=== PATIENT | female | born 1965 | race Caucasian/White ===

== ENCOUNTER 2018-10-10 23:23 | Emergency (ER) | payer SELFPAY ==
[2018-10-10 23:24] VITALS: BP 124/81
--- NOTE | 2018-10-10 23:29 | ER Report ---
History and Physical Time Seen By MD: 23:25 Hx. of Stated Complaint: S[facility]IOR [facility]IVING CLEARANCE HPI/ROS CHIEF COMPLAINT: Alcohol intoxication, longterm clearance HISTORY OF PRESENT ILLNESS: This is a 53-year-old female. She has been drinking heavily tonight. Found passed out in the hotel in a chair, and police brought h er here for longterm clearance. She denies any pain. Denies any current medical problems. She does have a long history of alcoholism. REVIEW OF SYSTEMS: Respiratory: No shortness of breath. Cardiovascular: No chest pain. Gastrointestinal: No vomiting, no abdominal pain. Musculoskeletal: No musculoskeletal pain or injuries. Allergies: Coded Allergies: No Known Drug Allergies (Unverified , 10/10/18) Home Meds No Active Prescriptions or Reported Meds Reviewed Nurses Notes: Yes Constitutional Vital Sign - Last 24 Hours 10/10/18 23:24 Temp 97.8 Pulse 87 Resp 16 B/P (MAP) 124/81 Pulse Ox 89 O2 Delivery Room Air Physical Exam General Appearance: The patient is alert, has no immediate need for airway protection. She is intoxicated. Eyes: Pupils are equal, round, reactive to light. Extraocular movements intact. She does have some scleral injection. ENT: Normal oral mucosa. Moist mucous membranes. Neck: Neck is supple and non tender. Respiratory: Chest is non tender, lungs are clear to auscultation. Cardiac: regular rate and rhythm, normal peripheral perfusion. Gastrointestinal: Abdomen is soft and non tender, bowel sounds normal. Musculoskeletal: Extremities have full range of motion. Non tender with palpation in the neck and back. Skin: No rashes or lesions. Neuro: Intoxicated, alert, in no acute distress and no focal deficits other than the intoxication. DIFFERENTIAL DIAGNOSIS: After history and physical exam differential diagnosis was considered for alcohol intoxication Medical Decision Making ED Course/Re-evaluation ED Course No current problems other than the noted intoxication. Stable to be discharged with police to longterm. Decision to Disposition Date: Oct 10, 2018 Decision to Disposition Time: 23:32 Depart Departure Latest Vital Signs Vital Signs Date Time Temp Pulse Resp B/P (MAP) Pulse Ox O2 Delivery O2 Flow Rate FiO2 10/10/18 23:24 97.8 87 16 124/81 89 Room Air Impression: Primary Impression: Alcohol intoxication Condition: Improved Disposition: [facility] TO [facility]RECTION[facility] F New Scripts No Active Prescriptions or Reported Meds Patient Instructions: Alcohol Intoxication (ED) Problem Qualifiers Primary Impression: Alcohol intoxication Complication of substance-induced condition: uncomplicated Qualified Codes: F10.920 - Alcohol use, unspecified with intoxication, uncomplicated MARK AGUILAR MD Oct 10, 2018 23:29
== END 2018-10-10 23:43 ==
LOC: ER 23:31
DX: F10.920 Alcohol use, unspecified with intoxication, uncomplicated (principal)
CPT/HCPCS: 99281